=== PATIENT | male | born 1985 | race Caucasian/White ===

== ENCOUNTER 2019-06-20 16:10 | Inpatient (IN) | payer SELFPAY ==
[2019-06-20 16:17] VITALS: BP 142/103; PULSE 109; RESP 20; TEMP 37.3; O2SAT 97
--- NOTE | 2019-06-20 18:16 | ED_ITS ---
Entered by Trang Perez, acting as scribe for Glenys Montiel Tonie Jun 20, 2019 16:10 HPI - General Adult General: Chief complaint: General Medical Stated complaint: MULTIPLE COMPLAINTS Time Seen by Provider: 06/20/19 18:15 Source: patient Mode of arrival: ambulatory Limitations: no limitations History of Present Illness: HPI narrative: 34 yo Male presents to ED with mu ltiple complaints. Pt states that he thinks he is jaundiced. Pt states that his friend noticed that his eyes were yellow which has been going on for about a week. Pt states that he has a history of pancreatitis. Pt states that his pancreatitis was caused by drinking. Pt states that he does still drink occasionally and when he does drink, he drinks a large amount. Pt states that he fell down some steps about 2 weeks ago and has been having some pain since then. Pt states that he has been having night sweats for the past week. Pt states that he has a history of high blood pressure, anxiety and depression. MD complaint: Multiple complaints Onset (ago): week(s) Location: eyes and back Radiation: non-radiation Severity scale (1-10): 2 Quality: aching, sharp and constant Pain Consistency: constant Relieving factors: none Exacerbating factors: none Associated symptoms: Reports fevers/chills and other (back pain); Deny chest pain, confusion, dyspnea, headache(s), malaise, nausea, rash, palpitations, syncope or vomiting Treatments prior to arrival: none Review of Systems General: Reports: other (negative unless marked) Const: Reports: night sweats; Denies: fever, chills, body aches, fatigue or malaise Eyes: Reports: yellow eyes; Denies: change in vision or blurry vision ENMT: Denies: throat pain, painful swallowing, hoarseness, ear pain, ear discharge, Change in hearing or nasal discharge Card: Denies: chest pain, palpitations, irregular heart rhythm, syncope, pre- syncope, shortness of breath on exertion or shortness of breath when lying down Resp: Denies: shortness of breath, productive cough, non-productive cough, wheezing, coughing up blood or chest congestion GI: Reports: abdominal pain; Denies: nausea, vomiting, vomiting blood, coffee grounds in vomit, diarrhea, constipation, cramping, blood in stool or black tarry stool : Denies: flank pain, difficulty urinating, painful urination, urinary frequency, urinary urgency, decreased urine ouput, urinary incontinence or blood in urine Musc: Reports: back pain; Denies: neck pain, extremity pain, extremity swelling, joint pain, joint swelling, joint warmth or joint stiffness Skin/Breast: Denies: rash, skin tenderness or yellow skin Neuro: Denies: headache, numbness in extremities, weakness in extremities, changes in sensation, lack of coordination, difficulty walking, dizziness, vertigo or confusion Endo: Denies: excessive thirst, tired all the time, cold intolerance, excessive sweating, flushing or hot flashes Camron/Lymph: Denies: easy bruising, easy bleeding, petechiae or enlarged lymph nodes All/Imm: Denies: hives, throat swelling, tongue swelling, facial swelling or acute wheezing PFSH ED PFSH: Medical History (Updated 06/20/19 @ 22:07 by Glenys Montiel) Alcohol abuse Anxiety Depression Hypertension IBS (irritable bowel syndrome) Insomnia Pancreatitis Surgical History (Updated 06/20/19 @ 21:59 by Kenn Ventura MD) Hx of cholecystectomy Family History (Updated 06/20/19 @ 22:01 by Kenn Ventura MD) Father Cancer of colon cancer, mother of breast cancer Social History (Updated 06/20/19 @ 22:01 by Kenn Ventura MD) Smoking and tobacco status: current some day smoker Alcohol intake: current Household members: friend(s) Physical Exam Const: COMMON NORMALS: no apparent distress, oriented x3, no limitations, healthy appearing and well nourished EXAM LIMITATIONS: no altered mental status GENERAL APPEARANCE: cooperative, well kempt and well developed ORIENTATION/CONSCIOUSNESS: Yes awake HENMT: COMMON NORMALS: normocephalic, head/scalp atraumatic, hearing grossly normal bilaterally, external ears normal, EAC's normal, external nose normal and moist oral mucous membranes HEAD & SCALP: normal to inspection, normocephalic and atraumatic FACE & SINUS: normal facial exam and face symmetric NOSE: external nose normal and nares normal EXTERNAL EAR: Yes external ears normal EXTERNAL AUDITORY CANAL: EAC's normal MOUTH: oral and palatal mucosa normal and tongue normal Eye: COMMON NORMALS: PERRL, EOMs intact bilaterally, conjunctivae normal and no scleral icterus GENERAL EYE: normal appearance of both eyes and normal light reflex CONJUNCTIVA: Yes conjunctivae normal SCLERA: sclerae normal CORNEA: Yes corneas normal PUPIL: Yes PERRL DIRECT OPHTHALMOSCOPY: Yes normal light reflex Neck/C-Spine: COMMON NORMALS: full ROM, no lymphadenopathy, supple, no meningeal signs and no JVD GENERAL: Yes normal visual inspection and Yes trachea midline CERVICAL SPINE: Yes cervical ROM normal Chest: COMMONS NORMALS: inspection of chest normal and palpation of chest normal Resp: COMMON NORMALS: normal respiratory effort, no retractions, no use of accessory muscles and clear to auscultation bilaterally EFFORT & INSPECTION: Yes able to speak in complete sentences AUSCULTATION: clear to auscultation bilaterally Cardio: COMMON NORMALS: no JVD, regular rate, regular rhythm, S1 normal heart sound, S2 normal heart sound, no gallops, no clicks, no murmurs and no rub JUGULAR VENOUS DISTENTION: no JVD RATE: regular rate RHYTHM: regular rhythm HEART SOUNDS: S1 normal and S2 normal GI: COMMON NORMALS: soft to palpation, non-tender, no hepatosplenomegaly and no masses INSPECTION: Yes normal to inspection PALPATION: Yes soft and Yes no hepatosplenomegaly : COMMON NORMALS: Yes no CVA tenderness BLADDER/KIDNEY EXAM: Yes no CVA tenderness Back/Pelvis: COMMON NORMALS: no CVA tenderness, thoracic and lumbar spine normal to inspection, no thoracic nor lumbar tenderness and thoraco-lumbar ROM normal Extremity: COMMON NORMALS: normal to inspection, full ROM, normal capillary refill, no joint enlargement, no clubbing, cyanosis or edema and no calf tenderness Neuro: COMMON NORMALS: oriented x3, CN's II-XII intact bilaterally, moves all extremities, no focal motor deficits and no sensory deficits noted MENINGEAL SIGNS: Yes no meningeal signs Psych: COMMON NORMALS: mental status grossly normal, thought process normal, cooperative, affect normal, speech normal and activity/motor behavior normal APPEARANCE: Yes well kempt SPEECH: Yes normal speech THOUGHT PROCESS: normal thought process Skin: COMMON NORMALS: no rashes or lesions noted, skin turgor normal, no jaundice, no petechiae and no mottling GENERAL SKIN EXAM: no rashes or lesions noted and turgor normal Course Vital Signs: Vital signs: Vital Signs Temperature 99.2 F 06/20/19 16:17 Pulse Rate 109 H 06/20/19 16:17 Respiratory Rate 20 H 06/20/19 16:17 Blood Pressure 142/103 06/20/19 16:17 Pulse Oximetry 97 06/20/19 16:17 MDM - General Adult MDM Narrative: Medical decision making narrative: The case was reviewed with Dr. Sethi. The patient appears to have hepatitis C but also acute hepatitis A. He is jaundiced with pain in the right upper quadrant and vomiting. He has no fever. Case will be evaluated by Dr. Sethi and he will admit for symptom control. Lab Data: Attestation: I reviewed the patient's lab results. Labs: Lab Results 06/20/19 06/20/19 06/20/19 Range/Units 18:43 18:43 18:43 WBC 6.7 (4.0-10.0) 10^3/ uL RBC 4.76 (4.1-5.3) 10^6/u L Hgb 13.7 (11.7-16.6) g/dL Hct 39.0 L (42.0-52.0) % MCV 81.9 (80-94) fL MCH 28.8 (28.0-34.0) pg MCHC 35.1 (30.0-36.0) g/dL RDW 14.9 (12.1-15.1) % Plt Count 180 (130-400) 10^3/c mm MPV 11.7 H (7.4-10.4) fL Neut % (Auto) 54.2 % Lymph % (Auto) 30.7 % Holmes % (Auto) 13.8 % Eos % (Auto) 0.3 % Baso % (Auto) 0.7 % Neut # (Auto) 3.6 (1.8-7.7) 10^3/u L Lymph # (Auto) 2.1 (0.8-4.8) 10^3/u L Holmes # (Auto) 0.9 (0.2-0.9) 10^3/u L Eos # (Auto) 0.0 (0.0-0.8) 10^3/u L Baso # (Auto) 0.1 (0.0-0.1) 10^3/u L Nucleated RBC % (a uto) 0 % Nucleated RBCs # 0.0 /100WBC PT (10.5-13.3) SECO NDS INR (0.8-1.2) APTT (23.9-36.7) SECO NDS Sodium 131 L (136-145) mmol/L Potassium 3.4 L (3.5-5.1) mmol/L Chloride 92 L (98-107) mmol/L Carbon Dioxide 29 (22-29) mmol/L Anion Gap 13.4 (5-19) BUN 5 L (6-20) mg/dL Creatinine 0.7 (0.7-1.2) mg/dL GFR Calculation 129.1 (90-130) mL/min Glucose 103 (65-115) mg/dL Calculated Osmolal ity 268 L (285-295) mOsm/k g Lactic Acid (0.5-2.2) mmol/L Calcium 9.0 (8.5-10.5) mg/dL Magnesium 2.2 (1.7-2.3) mg/dL Total Bilirubin 8.4 H* Cancelled (0.15-1.2) mg/dL Direct Bilirubin 6.40 H (0.00-0.30) mg/d L Indirect Bilirubin Cancelled AST 211 H (0-40) U/L ALT 620 H (0-41) U/L Alkaline Phosphata se 235 H (40-130) IU/L Ammonia (16-60) umol/L Total Protein 6.9 (6.6-8.7) g/dL Albumin 3.3 L (3.5-5.2) g/dL Globulin 3.6 (1.3-4.6) g/dL Lipase 78 H (13-60) U/L Urine Color (Yellow) Urine Appearance (CLEAR) Urine pH (5-7) Ur Specific Gravit y (1.005-1.030) Urine Protein (Negative) Urine Glucose (UA) (Normal) Urine Ketones (Negative) Urine Blood (Negative) Urine Nitrate (Negative) Urine Bilirubin (NEGATIVE) Urine Urobilinogen (Negative) mg/dL Ur Leukocyte Rosemarie ase (Negative) Urine RBC (0-2) /hpf Urine WBC (0-5) /hpf Ur Squamous Epith Cells (0-5) Urine Bacteria (NONE) Urine Opiates Scre en (Negative) ng/mL Acetaminophen (10-30) ug/mL Ur Barbiturates Sc reen (Negative) ng/mL Ur Phencyclidine S crn (Negative) ng/mL Ur Amphetamines Sc reen (Negative) ng/mL U Benzodiazepines Scrn (Negative) ng/mL Urine Cocaine Scre en (Negative) ng/mL U Marijuana (THC) Screen (Negative) ng/mL Ethyl Alcohol 10 (0-10) mg/dL Serum Ketones (Negative) Hepatitis A IgM Ab (Nonreactive) Hep Bs Antigen (Nonreactive) Hep B Core IgM Ab (Nonreactive) Hepatitis C Antibo dy (Nonreactive) 06/20/19 06/20/19 06/20/19 Range/Units 18:43 18:43 18:43 WBC (4.0-10.0) 10^3/ uL RBC (4.1-5.3) 10^6/u L Hgb (11.7-16.6) g/dL Hct (42.0-52.0) % MCV (80-94) fL MCH (28.0-34.0) pg MCHC (30.0-36.0) g/dL RDW (12.1-15.1) % Plt Count (130-400) 10^3/c mm MPV (7.4-10.4) fL Neut % (Auto) % Lymph % (Auto) % Holmes % (Auto) % Eos % (Auto) % Baso % (Auto) % Neut # (Auto) (1.8-7.7) 10^3/u L Lymph # (Auto) (0.8-4.8) 10^3/u L Holmes # (Auto) (0.2-0.9) 10^3/u L Eos # (Auto) (0.0-0.8) 10^3/u L Baso # (Auto) (0.0-0.1) 10^3/u L Nucleated RBC % (a uto) % Nucleated RBCs # /100WBC PT 14.10 H (10.5-13.3) SECO NDS INR 1.06 (0.8-1.2) APTT 33.2 (23.9-36.7) SECO NDS Sodium (136-145) mmol/L Potassium (3.5-5.1) mmol/L Chloride (98-107) mmol/L Carbon Dioxide (22-29) mmol/L Anion Gap (5-19) BUN (6-20) mg/dL Creatinine (0.7-1.2) mg/dL GFR Calculation (90-130) mL/min Glucose (65-115) mg/dL Calculated Osmolal ity (285-295) mOsm/k g Lactic Acid 1.3 (0.5-2.2) mmol/L Calcium (8.5-10.5) mg/dL Magnesium (1.7-2.3) mg/dL Total Bilirubin (0.15-1.2) mg/dL Direct Bilirubin (0.00-0.30) mg/d L Indirect Bilirubin AST (0-40) U/L ALT (0-41) U/L Alkaline Phosphata se (40-130) IU/L Ammonia (16-60) umol/L Total Protein (6.6-8.7) g/dL Albumin (3.5-5.2) g/dL Globulin (1.3-4.6) g/dL Lipase (13-60) U/L Urine Color (Yellow) Urine Appearance (CLEAR) Urine pH (5-7) Ur Specific Gravit y (1.005-1.030) Urine Protein (Negative) Urine Glucose (UA) (Normal) Urine Ketones (Negative) Urine Blood (Negative) Urine Nitrate (Negative) Urine Bilirubin (NEGATIVE) Urine Urobilinogen (Negative) mg/dL Ur Leukocyte Rosemarie ase (Negative) Urine RBC (0-2) /hpf Urine WBC (0-5) /hpf Ur Squamous Epith Cells (0-5) Urine Bacteria (NONE) Urine Opiates Scre en (Negative) ng/mL Acetaminophen (10-30) ug/mL Ur Barbiturates Sc reen (Negative) ng/mL Ur Phencyclidine S crn (Negative) ng/mL Ur Amphetamines Sc reen (Negative) ng/mL U Benzodiazepines Scrn (Negative) ng/mL Urine Cocaine Scre en (Negative) ng/mL U Marijuana (THC) Screen (Negative) ng/mL Ethyl Alcohol (0-10) mg/dL Serum Ketones (Negative) Hepatitis A IgM Ab Reactive H (Nonreactive) Hep Bs Antigen Non-reactive (Nonreactive) Hep B Core IgM Ab Non-reactive (Nonreactive) Hepatitis C Antibo dy Reactive H (Nonreactive) 06/20/19 06/20/19 06/20/19 Range/Units 18:43 18:43 18:43 WBC (4.0-10.0) 10^3/ uL RBC (4.1-5.3) 10^6/u L Hgb (11.7-16.6) g/dL Hct (42.0-52.0) % MCV (80-94) fL MCH (28.0-34.0) pg MCHC (30.0-36.0) g/dL RDW (12.1-15.1) % Plt Count (130-400) 10^3/c mm MPV (7.4-10.4) fL Neut % (Auto) % Lymph % (Auto) % Holmes % (Auto) % Eos % (Auto) % Baso % (Auto) % Neut # (Auto) (1.8-7.7) 10^3/u L Lymph # (Auto) (0.8-4.8) 10^3/u L Holmes # (Auto) (0.2-0.9) 10^3/u L Eos # (Auto) (0.0-0.8) 10^3/u L Baso # (Auto) (0.0-0.1) 10^3/u L Nucleated RBC % (a uto) % Nucleated RBCs # /100WBC PT (10.5-13.3) SECO NDS INR (0.8-1.2) APTT (23.9-36.7) SECO NDS Sodium (136-145) mmol/L Potassium (3.5-5.1) mmol/L Chloride (98-107) mmol/L Carbon Dioxide (22-29) mmol/L Anion Gap (5-19) BUN (6-20) mg/dL Creatinine (0.7-1.2) mg/dL GFR Calculation (90-130) mL/min Glucose (65-115) mg/dL Calculated Osmolal ity (285-295) mOsm/k g Lactic Acid (0.5-2.2) mmol/L Calcium (8.5-10.5) mg/dL Magnesium (1.7-2.3) mg/dL Total Bilirubin (0.15-1.2) mg/dL Direct Bilirubin (0.00-0.30) mg/d L Indirect Bilirubin AST (0-40) U/L ALT (0-41) U/L Alkaline Phosphata se (40-130) IU/L Ammonia 35 (16-60) umol/L Total Protein (6.6-8.7) g/dL Albumin (3.5-5.2) g/dL Globulin (1.3-4.6) g/dL Lipase (13-60) U/L Urine Color (Yellow) Urine Appearance (CLEAR) Urine pH (5-7) Ur Specific Gravit y (1.005-1.030) Urine Protein (Negative) Urine Glucose (UA) (Normal) Urine Ketones (Negative) Urine Blood (Negative) Urine Nitrate (Negative) Urine Bilirubin (NEGATIVE) Urine Urobilinogen (Negative) mg/dL Ur Leukocyte Rosemarie ase (Negative) Urine RBC (0-2) /hpf Urine WBC (0-5) /hpf Ur Squamous Epith Cells (0-5) Urine Bacteria (NONE) Urine Opiates Scre en (Negative) ng/mL Acetaminophen < 5.0 L (10-30) ug/mL Ur Barbiturates Sc reen (Negative) ng/mL Ur Phencyclidine S crn (Negative) ng/mL Ur Amphetamines Sc reen (Negative) ng/mL U Benzodiazepines Scrn (Negative) ng/mL Urine Cocaine Scre en (Negative) ng/mL U Marijuana (THC) Screen (Negative) ng/mL Ethyl Alcohol (0-10) mg/dL Serum Ketones Negative (Negative) Hepatitis A IgM Ab (Nonreactive) Hep Bs Antigen (Nonreactive) Hep B Core IgM Ab (Nonreactive) Hepatitis C Antibo dy (Nonreactive) 06/20/19 06/20/19 Range/Units 19:22 19:22 WBC (4.0-10.0) 10^3/ uL RBC (4.1-5.3) 10^6/u L Hgb (11.7-16.6) g/dL Hct (42.0-52.0) % MCV (80-94) fL MCH (28.0-34.0) pg MCHC (30.0-36.0) g/dL RDW (12.1-15.1) % Plt Count (130-400) 10^3/c mm MPV (7.4-10.4) fL Neut % (Auto) % Lymph % (Auto) % Holmes % (Auto) % Eos % (Auto) % Baso % (Auto) % Neut # (Auto) (1.8-7.7) 10^3/u L Lymph # (Auto) (0.8-4.8) 10^3/u L Holmes # (Auto) (0.2-0.9) 10^3/u L Eos # (Auto) (0.0-0.8) 10^3/u L Baso # (Auto) (0.0-0.1) 10^3/u L Nucleated RBC % (a uto) % Nucleated RBCs # /100WBC PT (10.5-13.3) SECO NDS INR (0.8-1.2) APTT (23.9-36.7) SECO NDS Sodium (136-145) mmol/L Potassium (3.5-5.1) mmol/L Chloride (98-107) mmol/L Carbon Dioxide (22-29) mmol/L Anion Gap (5-19) BUN (6-20) mg/dL Creatinine (0.7-1.2) mg/dL GFR Calculation (90-130) mL/min Glucose (65-115) mg/dL Calculated Osmolal ity (285-295) mOsm/k g Lactic Acid (0.5-2.2) mmol/L Calcium (8.5-10.5) mg/dL Magnesium (1.7-2.3) mg/dL Total Bilirubin (0.15-1.2) mg/dL Direct Bilirubin (0.00-0.30) mg/d L Indirect Bilirubin AST (0-40) U/L ALT (0-41) U/L Alkaline Phosphata se (40-130) IU/L Ammonia (16-60) umol/L Total Protein (6.6-8.7) g/dL Albumin (3.5-5.2) g/dL Globulin (1.3-4.6) g/dL Lipase (13-60) U/L Urine Color Dark yellow (Yellow) Urine Appearance Clear (CLEAR) Urine pH 7 (5-7) Ur Specific Gravit y 1.005 (1.005-1.030) Urine Protein Neg (Negative) Urine Glucose (UA) Norm (Normal) Urine Ketones Negative (Negative) Urine Blood Neg (Negative) Urine Nitrate Negative (Negative) Urine Bilirubin 2+ H (NEGATIVE) Urine Urobilinogen 4 H (Negative) mg/dL Ur Leukocyte Rosemarie ase Negative (Negative) Urine RBC None (0-2) /hpf Urine WBC None (0-5) /hpf Ur Squamous Epith Cells None (0-5) Urine Bacteria None (NONE) Urine Opiates Scre en Negative (Negative) ng/mL Acetaminophen (10-30) ug/mL Ur Barbiturates Sc reen Negative (Negative) ng/mL Ur Phencyclidine S crn Negative (Negative) ng/mL Ur Amphetamines Sc reen Negative (Negative) ng/mL U Benzodiazepines Scrn Negative (Negative) ng/mL Urine Cocaine Scre en Negative (Negative) ng/mL U Marijuana (THC) Screen Positive H (Negative) ng/mL Ethyl Alcohol (0-10) mg/dL Serum Ketones (Negative) Hepatitis A IgM Ab (Nonreactive) Hep Bs Antigen (Nonreactive) Hep B Core IgM Ab (Nonreactive) Hepatitis C Antibo dy (Nonreactive) Imaging Data^: CT Abd/Pel: Radiologist's impression: [place] [address] CT Scan Report Signed Patient: Tono Kessler #: [id number] : 1985Acct#:[id number] Age/Sex: 34 / MADM Date: 06/20/19 Loc: ERRoom/Bed: Attending Dr: Ordering Provider/Ordering MD: Glenys Montiel DO Date of Service: 06/20/19 Procedure(s): CT abdomen pelvis w con* [id number] Accession Number(s): [id number] Report Number: [id number] PROCEDURE INFORMATION: Exam: CT Abdomen And Pelvis With Contrast Exam date and time: 06/20/2019 6:25 PM Age: 34 years old Clinical indication: Abdominal pain; Generalized; Prior surgery; Surgery date: 6+ months; Surgery type: Gb; Patient HX: Abd pain xseveral days TECHNIQUE: Imaging protocol: Computed tomography of the abdomen and pelvis with intravenous contrast. Total DLP: 501.61 mGy-cm Radiation optimization: All CT scans at this facility use at least one of these dose optimization techniques: automated exposure control; mA and/or kV adjustment per patient size (includes targeted exams where dose is matched to clinical indication); or iterative reconstruction. Contrast material: OMNIPAQUE 300; Contrast volume: 95 ml; Contrast route: IV; COMPARISON: CT abdomen pelvis w con* [id number] 08/23/2017 7:00 PM FINDINGS: There is minimal atelectasis within the lung bases. There are mild degenerative changes of the spine. There are old healed transverse process fractures on the left at L1, L2 and L3. There is periportal edema. This is a nonspecific finding. It can be seen with hepatitis as well as other etiologies. It may be related to the timing of the scan after the bolus of contrast. Please correlate with liver function tests. There is a stable small hypodensity within the right lobe of the liver likely representing a cyst. There is no suspicious liver mass. The patient is status post cholecystectomy. The pancreas is unremarkable. The spleen is prominent. 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 There is no adrenal mass. There is no hydronephrosis. There are no renal calculi. There is no perinephric stranding. There is no renal mass. The aorta is normal in caliber. The IVC is normal in caliber. There is no retroperitoneal adenopathy. There is no mesenteric adenopathy. Stomach is filled with food. There is no gastric wall thickening. The small bowel loops in the upper abdomen are nondistended with no bowel wall thickening. Feces is seen throughout the colon. There is no thickening of the wall of the ascending, transverse or descending colons. Within the pelvis: A normal appendix is seen within the right lower quadrant. The bladder is unremarkable. There is mild prostatic enlargement. There is no free fluid within the pelvis. There is no inguinal adenopathy. There is no pelvic adenopathy. The rectosigmoid colon is unremarkable. CT/CT abdomen pelvis w con* [id number] IMPRESSION: 1. There is periportal edema. This is a nonspecific finding. It can be seen with hepatitis as well as other etiologies. It may be related to the timing of the scan after the bolus of contrast. Please correlate with liver function tests. 2. Prominence of the spleen with perisplenic varices. Please correlate for portal hypertension and possible cirrhosis. 3. No evidence for bowel obstruction or bowel wall thickening. 4. Mild prostatic enlargement. Radiation Dose CTDIVOL = (mGy): DLP = 501.61 (mGy-cm) Dictated By:Isak Coleman MD Signed By:Isak Coleman MDSigned Date/Time:06/20/191935 DD/ 34 Discharge Plan Discharge Patient Disposition: Placed in Observation Admit Provider: Kenn Ventura Clinical Impression: Acute hepatitis A, Jaundice Condition: Stable Coding Level of Care Code ED Curing Room Supervisor for Chg Fwd Exam Comprehensive The documentation recorded by the Ana londono Carmen, accurately reflects the service I personally performed and the decisions made by Tiana kapadia Eli N Jun 20, 2019 16:10
--- NOTE | 2019-06-20 18:22 | CTR_ITS ---
PROCEDURE INFORMATION: Exam: CT Abdomen And Pelvis With Contrast Exam date and time: 06/20/2019 6:25 PM Age: 34 years old Clinical indication: Abdominal pain; Generalized; Prior surgery; Surgery date: 6+ months; Surgery type: Gb; Patient HX: Abd pain xseveral days TECHNIQUE: Imaging protocol: Computed tomography of the abdomen and pelvis with intravenous contrast. Total DLP: 501.61 mGy-cm Radiation optimization: All CT scans at this facility use at least one of these dose optimization techniques: automated exposure control; mA and/or kV adjustment per patient size (includes targeted exams where dose is matched to clinical indication); or iterative reconstruction. Contrast material: OMNIPAQUE 300; Contrast volume: 95 ml; Contrast route: IV; COMPARISON: CT abdomen pelvis w con* [id number] 08/23/2017 7:00 PM FINDINGS: There is minimal atelectasis within the lung bases. There are mild degenerative changes of the spine. There are old healed transverse process fractures on the left at L1, L2 and L3. There is periportal edema. This is a nonspecific finding. It can be seen with hepatitis as well as other etiologies. It may be related to the timing of the scan after the bolus of contrast. Please correlate with liver function tests. There is a stable small hypodensity within the right lobe of the liver likely representing a cyst. There is no suspicious liver mass. The patient is status post cholecystectomy. The pancreas is unremarkable. The spleen is prominent. 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 There is no adrenal mass. There is no hydronephrosis. There are no renal calculi. There is no perinephric stranding. There is no renal mass. The aorta is normal in caliber. The IVC is normal in caliber. There is no retroperitoneal adenopathy. There is no mesenteric adenopathy. Stomach is filled with food. There is no gastric wall thickening. The small bowel loops in the upper abdomen are nondistended with no bowel wall thickening. Feces is seen throughout the colon. There is no thickening of the wall of the ascending, transverse or descending colons. Within the pelvis: A normal appendix is seen within the right lower quadrant. The bladder is unremarkable. There is mild prostatic enlargement. There is no free fluid within the pelvis. There is no inguinal adenopathy. There is no pelvic adenopathy. The rectosigmoid colon is unremarkable. CT/CT abdomen pelvis w con* [id number] IMPRESSION: 1. There is periportal edema. This is a nonspecific finding. It can be seen with hepatitis as well as other etiologies. It may be related to the timing of the scan after the bolus of contrast. Please correlate with liver function tests. 2. Prominence of the spleen with perisplenic varices. Please correlate for portal hypertension and possible cirrhosis. 3. No evidence for bowel obstruction or bowel wall thickening. 4. Mild prostatic enlargement. Radiation Dose CTDIVOL = (mGy): DLP = 501.61 (mGy-cm)
--- NOTE | 2019-06-20 18:23 | US_ITS ---
WS: [id number] Complete ABDOMINAL ULTRASOUND HISTORY: Abdominal Pain COMPARISON: None available. Liver: 16.4 cm in length. Liver is normal size and echogenicity with no mass or intrahepatic dilatati on. Gallbladder: Prior cholecystectomy. Pancreas: Normal size and echogenicity. CBD: 0.5 cm. Right kidney: 10.8 cm x 5.7 cm x 4.7 cm. No mass, cortical thickening or hydronephrosis. Left kidney: 9.9 cm x 4.3 cm x 4.4 cm. No mass, cortical thickening or hydronephrosis. Spleen: Normal size and echogenicity. Abdominal aorta and IVC are within normal limits. No ascites. US/US abdomen complete* [id number] IMPRESSION: 1. Prior cholecystectomy. 2. No bile duct dilatation or mass.
[2019-06-20] MEDS: sodium chloride 0.9% 1,000 ML 100 ML IV ×2 (18:40→23:21)
[2019-06-20 19:03] LABS: Basophils # 0.1 10^3/uL (0.0-0.1); Basophils % 0.7 %; Eosinophils % 0.3 %; Hemoglobin 13.7 g/dL (11.7-16.6); Lymphocytes # 2.1 10^3/uL (0.8-4.8); Lymphocytes % 30.7 %; Mean Corpuscular HGB Conc 35.1 g/dL (30.0-36.0); Mean Corpuscular Hemoglobin 28.8 pg (28.0-34.0); Mean Corpuscular Volume 81.9 fL (80-94); Mean Platelet Volume 11.7 fL (7.4-10.4); Monocytes # 0.9 10^3/uL (0.2-0.9); Monocytes % 13.8 %; Neutrophils # 3.6 10^3/uL (1.8-7.7); Neutrophils % 54.2 %; Nucleated Red Blood Cells % 0 %; Platelet Count 180 10^3/cmm (130-400); Red Blood Count 4.76 10^6/uL (4.1-5.3); Red Cell Distribution Width 14.9 % (12.1-15.1); White Blood Count 6.7 10^3/uL (4.0-10.0)
[2019-06-20 19:09] LABS: Ammonia 35 umol/L (16-60)
[2019-06-20 19:10] LABS: Lactic Sepsis W/Reflex 1.3 mmol/L (0.5-2.2)
[2019-06-20 19:19] LABS: INR 1.06 (0.8-1.2)
[2019-06-20 19:20] LABS: Ketone (Acetest) Serum Negative (Negative); Partial Thromboplastin Time 33.2 SECONDS (23.9-36.7)
[2019-06-20] MEDS: iohexol 300 mg/mL 100 mL Btl IV (19:21)
[2019-06-20 19:26] LABS: Alanine Aminotransferase 620 U/L (0-41); Albumin Level 3.3 g/dL (3.5-5.2); Alkaline Phosphatase 235 IU/L (40-130); Anion Gap 13.4 (5-19); Aspartate Amino Transferase 211 U/L (0-40); Blood Urea Nitrogen 5 mg/dL (6-20); Carbon Dioxide 29 mmol/L (22-29); Chloride 92 mmol/L (98-107); Globulin 3.6 g/dL (1.3-4.6); Glomerular Filtration Rate 129.1 mL/min (90-130); Glucose 103 mg/dL (65-115); Osmolality Calculated 268 mOsm/kg (285-295); Potassium 3.4 mmol/L (3.5-5.1); Sodium 131 mmol/L (136-145); Total Protein 6.9 g/dL (6.6-8.7)
[2019-06-20 19:52] LABS: Total Bilirubin 8.4 mg/dL (0.15-1.2)
[2019-06-20 19:57] LABS: Lipase 78 U/L (13-60); Magnesium 2.2 mg/dL (1.7-2.3)
[2019-06-20 20:11] LABS: Bilirubin Urine 2+ (NEGATIVE); Blood Urine Neg (Negative); Glucose Urine UA Norm (Normal); Ketones Urine Negative (Negative); Leukocyte Esterase Urine Negative (Negative); Nitrate Urine Negative (Negative); Protein Urine Neg (Negative); Specific Gravity, Urine 1.005 (1.005-1.030); Urine Appearance Clear (CLEAR); Urine Color Dark Yellow (Yellow); Urobilinogen Urine 4 mg/dL (Negative); pH Urine 7 (5-7)
[2019-06-20 20:11] LABS: Hepatitis A Antibody IgM. Reactive (Nonreactive); Hepatitis B Core IgM Non-Reactive (Nonreactive); Hepatitis B Surface Antigen. Non-Reactive (Nonreactive)
[2019-06-20 20:13] LABS: Amphetamines Screen Urine Negative (Negative); Barbiturates Screen Urine Negative (Negative); Benzodiazepines Screen Urine Negative (Negative); Cocaine Screen Urine Negative (Negative); Opiate Screen Urine Negative (Negative); PCP Screen Urine Negative (Negative); THC Screen Urine Positive (Negative)
[2019-06-20 20:33] LABS: Acetaminophen < 5.0 ug/mL (10-30)
[2019-06-20 20:46] LABS: Alcohol Level 10 mg/dL (0-10)
[2019-06-20 20:57] LABS: Hepatitis C Virus Antibody Reactive (Nonreactive)
--- NOTE | 2019-06-20 21:58 | P.HP_ITS ---
Providers/Chief Complaint Primary Care Provider: Carson Mendez MD Chief Complaint: MULTIPLE COMPLAINTS History of Present Illness Smooth Kessler is a 34 year old male who has a history of depression, hypertension, insomnia, came in with a one-week history of yellow-colored eyes. Patient is stating that his friend noticed that his eye color is changing, this happened 1 week ago, he did not seek medical attention right away, he tried to hydrate himself use [id number] medications, denying excessive use of Tylenol or aspirin [id number], he has been drinking alcohol on daily basis, he drinks vodka most of the time, when he drinks heavily he drinks 12 shots, 1 pack of cigarettes per week, does electronic cigarettes, denying fever, abdominal pain, dysuria, but is endorsing extreme lethargy, nausea, loose stools. Patient is drinking water from tap, no recent sexual activity, denying IV drug abuse, has body tattoos, endorses to unprotected sexual intercourse few months back. He lives with his friend, his friend is in good health as per him, he also noticed that hyperemic skin rash that developed today after shower which he attributes to using lotion. He has not traveled outside [place]. He is denying poor sanitary conditions at his house. Diagnostics in ER revealed acute hepatitis with hepatitis a virus, liver failure, U tox positive for THC, hepatitis C antibody is reactive Review of Systems Const: Reports: body aches, change in appetite, fatigue, malaise and change in sleep pattern; Denies: fever or chills Eyes: Reports: yellow eyes ENMT: Denies: throat pain Card: Denies: chest pain Resp: Denies: shortness of breath GI: Reports: nausea and diarrhea; Denies: abdominal pain or vomiting : Denies: flank pain Musc: Denies: neck pain Skin/Breast: Denies: rash Neuro: Denies: headache Psych: Reports: anxiety, depression and mood swings; Denies: sleeping less Endo: Denies: excessive urination Camron/Lymph: Denies: easy bruising All/Imm: Denies: hives Medications/Allergies Home Medications Medication Instructions Recorded Confirmed Last Taken Type clonazepam 1 mg PO DAILY PRN 06/20/19 06/20/19 Unknown History fluoxetine 20 mg PO DAILY 06/20/19 06/20/19 Unknown History hydroxyzine HCl 50 mg PO QID 06/20/19 06/20/19 Unknown History ondansetron 4 mg PO Q8H PRN 06/20/19 06/20/19 06/20/19 History trazodone 100 mg PO BEDTIME PRN 06/20/19 06/20/19 Unknown History Allergies Allergy/AdvReac Type Severity Reaction Status Date / Time No Known Allergies Allergy Verified 06/20/19 16:24 PFSH Acute PFSH: Medical History Alcohol abuse Anxiety Depression Hypertension IBS (irritable bowel syndrome) Insomnia Pancreatitis Surgical History Hx of cholecystectomy Family History Father Cancer of colon cancer, mother of breast cancer Social History (Updated 06/20/19 @ 23:24 by Kenn Ventura MD) Smoking and tobacco status: current some day smoker Alcohol intake: current Alcohol use comment: Patient drinks 12 shots of vodka when he drinks heavy Substance/Drug Use: current Other substance/drug use details: He vapes Lives independently: Yes Household members: friend(s) Housing: House Marital status: Vitals/I&O/Wt Last Vital Signs Temp 99.2 F 06/20/19 16:17 Pulse 109 H 06/20/19 16:17 Resp 20 H 06/20/19 16:17 BP 142/103 06/20/19 16:17 Pulse Ox 97 06/20/19 16:17 Weight last 48 hrs Weight 58.06 kg Physical Exam Narrative: EXAM NARRATIVE: Young male sitting comfortable in his bed Icteric conjunctive a EOMI, PERRLA Icteric skin Asterixis negative S1, S2, no signs of heart failure Abdomen soft, nontender nondistended Hepatomegaly positive Lungs clear to auscultation Neurologically no work exam Skin shows hyperemic skin rash extending from his forehead towards his chin, no signs of discharge, Lower extremities no signs of ischemia gangrene or ulcer Data : 06/20/19 18:43 06/20/19 18:43 A&P Assessment and plan (1) Acute hepatitis A: Status: Acute Code(s): B15.9 - Hepatitis A without hepatic coma (2) Jaundice: Status: Acute Code(s): R17 - Unspecified jaundice (3) Skin rash: Status: Acute Code(s): R21 - Rash and other nonspecific skin eruption (4) Alcohol abuse: Status: Acute Code(s): F10.10 - Alcohol abuse, uncomplicated (5) Smoker: Status: Acute Code(s): F17.200 - Nicotine dependence, unspecified, uncomplicated (6) Hepatitis C: Status: Acute Code(s): B19.20 - Unspecified viral hepatitis C without hepatic coma Additional A&P Information Acute hepatitis A Patient presented with jaundice Patient is denying poor sanitary conditions, drinking well water, no recent sexual activity, no recent traveling, Conservative management Hepatitis C antibodies positive, will check hepatitis C RNA viral load, he was counseled on importance of treatment for hepatitis C and prevention of liver cirrhosis and liver cancer Patient is endorsing to unprotected sex few months ago and body tattoos, body tattoos were done by his friend Will check HIV panel Counseled on getting hepatitis B vaccine after resolution of hepatitis A Signs of portal hypertension on abdominal imaging I am suspecting he had hepatitis C for a long time contributing to portal hypertension He will need EGD to rule out esophageal varices He sees Dr. Vansesa Mendez has done colonoscopy because of family history of colon cancer Alcohol abuse: Thiamine and folic acid, denies alcohol withdrawal symptoms Alcohol level undetectable Smoking abuse: Patient has been counseled extensively on cessation of smoking and alcohol and benefits to his health Depression/anxiety: I would continue his paroxetine and as needed use of trazodo ne at night Hyperemic skin rash: Watch for development of erysipelas, is not septic at the moment, I would use steroids for now Hypertension: Continue metoprolol Full code Attestations Medical Necessity Statement*: Anticipating his stay to cross more than 2 midnights, needs work-up for hepatitis C and hyperemic skin rash needs to be monitored for development of erysipelas, continue hepatitis a conservative management Time Spent in Patient Care: 45 Coding Level of Care Code Acute Chemistry Laboratory Technician for [facility] Fwd Diagnoses Acute hepatitis A B15.9 Jaundice R17 Skin rash R21 Alcohol abuse F10.10 Smoker F17.200 Hepatitis C B19.20
[2019-06-20 22:22] VITALS: BP 137/65; PULSE 98; RESP 18; O2SAT 100
[2019-06-20 23:01] VITALS: BP 127/88; PULSE 95; RESP 18; TEMP 37.3; O2SAT 96
[2019-06-20 23:15] VITALS: RESP 18
[2019-06-20] MEDS: morphine 4 mg/mL SDV 1 mL IVP (23:15)
[2019-06-21] VITALS (8 sets, daily range): BP systolic 93–124; BP diastolic 60–85; PULSE 78–98; RESP 17–20; TEMP 36.4–37.2; O2SAT 93–97
[2019-06-21] MEDS: trazodone 100 mg Tablet PO (00:25)
[2019-06-21] MEDS: enoxaparin 40 mg/0.4 mL Syringe SUBCUT (00:25)
[2019-06-21 00:39] LABS: HIV 1 & 2 Antibody Non-Reactive (Non-Reactiv); HIV 1 & 2 Antigen Non-Reactive (Non-Reactiv)
[2019-06-21 05:53] LABS: Basophils % 0.9 %; Eosinophils % 0.9 %; Hematocrit 36.5 % (42.0-52.0); Hemoglobin 12.5 g/dL (11.7-16.6); Lymphocytes % 45.2 %; Mean Corpuscular HGB Conc 34.2 g/dL (30.0-36.0); Mean Corpuscular Hemoglobin 29.9 pg (28.0-34.0); Mean Corpuscular Volume 87.3 fL (80-94); Mean Platelet Volume 12.3 fL (7.4-10.4); Monocytes # 0.5 10^3/uL (0.2-0.9); Monocytes % 12.4 %; Neutrophils # 1.8 10^3/uL (1.8-7.7); Neutrophils % 40.1 %; Nucleated Red Blood Cells % 0 %; Platelet Count 152 10^3/cmm (130-400); Red Blood Count 4.18 10^6/uL (4.1-5.3); Red Cell Distribution Width 15.4 % (12.1-15.1); White Blood Count 4.4 10^3/uL (4.0-10.0)
[2019-06-21 06:14] LABS: Alanine Aminotransferase 483 U/L (0-41); Albumin Level 2.8 g/dL (3.5-5.2); Alkaline Phosphatase 220 IU/L (40-130); Anion Gap 10.6 (5-19); Aspartate Amino Transferase 148 U/L (0-40); Blood Urea Nitrogen 5 mg/dL (6-20); Calcium 8.5 mg/dL (8.5-10.5); Carbon Dioxide 27 mmol/L (22-29); Chloride 103 mmol/L (98-107); Globulin 3.5 g/dL (1.3-4.6); Glomerular Filtration Rate 154.2 mL/min (90-130); Glucose 91 mg/dL (65-115); Osmolality Calculated 279 mOsm/kg (285-295); Potassium 3.6 mmol/L (3.5-5.1); Sodium 137 mmol/L (136-145); Total Bilirubin 6.4 mg/dL (0.15-1.2); Total Protein 6.3 g/dL (6.6-8.7)
[2019-06-21 06:32] LABS: Slide Review Slide Review Perform
[2019-06-21] MEDS: sodium chloride 0.9% 1,000 ML 100 ML IV ×2 (08:00→17:25)
[2019-06-21] MEDS: PARoxetine 20 mg Tablet PO (08:01)
[2019-06-21] MEDS: thiamine 100 mg Tablet PO (08:01)
[2019-06-21] MEDS: folic acid 1 mg Tablet PO (08:01)
[2019-06-21] MEDS: morphine 4 mg/mL SDV 1 mL IVP ×2 (11:34→20:14)
--- NOTE | 2019-06-21 13:36 | P.PN_ITS ---
Subjective Subjective: Interval history: Smooth reports he is feeling a little bit better. He is able to eat. No nausea. History and physical was reviewed. Medications: Reviewed: Yes Vitals/I&O/Wt Last Vital Signs Temp 98.7 F 06/21/19 11:23 Pulse 87 06/21/19 11:23 Resp 18 06/21/19 11:34 BP 118/79 06/21/19 11:23 Pulse Ox 94 06/21/19 11:23 06/20/19 06/21/19 06/21/19 22:59 06:59 14:59 Intake Total 468.333 / 067.161 5209 / 1465 Output Total 1225 / 1225 Balance -756.667 / -069.492 9589 / 1465 Weight last 48 hrs Weight 58.06 kg Physical Exam Narrative: EXAM NARRATIVE: General exam is a jaundiced white male, no apparent distress Cardiovascular regular rate and rhythm without murmur Lungs clear Abdomen is soft, positive bowel sounds Extremities no cyanosis clubbing or edema Data : 06/21/19 04:45 06/21/19 04:45 A&P Assessment and plan (1) Acute hepatitis A: Continue supportive care, with IV fluids. Status: Acute Code(s): B15.9 - Hepatitis A without hepatic coma (2) Jaundice: Bilirubin level still significantly elevated. Status: Acute Code(s): R17 - Unspecified jaundice (3) Skin rash: Improved. Does not appear infectious. Status: Acute Code(s): R21 - Rash and other nonspecific skin eruption (4) Alcohol abuse: Counseled on avoidance of alcohol Continue thiamine Monitor for alcohol withdrawal Status: Acute Code(s): F10.10 - Alcohol abuse, uncomplicated (5) Smoker: Encourage abstinence Status: Acute Code(s): F17.200 - Nicotine dependence, unspecified, uncomplicated (6) Hepatitis C: Will need to seek treatment outpatient. Will refer Status: Acute Code(s): B19.20 - Unspecified viral hepatitis C without hepatic coma Additional A&P Information Depression. Continue Paxil Hypertension, continue metoprolol Attestations Medical Necessity Statement*: Needs continued hospitalization for supportive care secondary to acute hepatitis A with underlying liver dysfunction. Coding Level of Care Code Acute Insulation Inspector for [facility] Pauline Diagnoses Acute hepatitis A B15.9 Jaundice R17 Skin rash R21 Alcohol abuse F10.10 Smoker F17.200 Hepatitis C B19.20
[2019-06-22] VITALS (7 sets, daily range): BP systolic 100–110; BP diastolic 66–78; PULSE 66–82; RESP 18–20; TEMP 36.8–37.1; O2SAT 96–98
[2019-06-22] MEDS: morphine 4 mg/mL SDV 1 mL IVP ×2 (02:25→08:35)
[2019-06-22] MEDS: sodium chloride 0.9% 1,000 ML 100 ML IV (03:28)
[2019-06-22] MEDS: enoxaparin 40 mg/0.4 mL Syringe SUBCUT (03:29)
[2019-06-22 05:45] LABS: Basophils # 0.1 10^3/uL (0.0-0.1); Eosinophils # 0.1 10^3/uL (0.0-0.8); Eosinophils % 1.4 %; Hematocrit 37.7 % (42.0-52.0); Hemoglobin 12.8 g/dL (11.7-16.6); Lymphocytes # 2.3 10^3/uL (0.8-4.8); Lymphocytes % 43.8 %; Mean Corpuscular Hemoglobin 30.3 pg (28.0-34.0); Mean Corpuscular Volume 89.1 fL (80-94); Mean Platelet Volume 12.1 fL (7.4-10.4); Monocytes # 0.7 10^3/uL (0.2-0.9); Monocytes % 13.4 %; Neutrophils # 2.1 10^3/uL (1.8-7.7); Nucleated Red Blood Cells % 0 %; Platelet Count 187 10^3/cmm (130-400); Red Blood Count 4.23 10^6/uL (4.1-5.3); Red Cell Distribution Width 16.2 % (12.1-15.1); White Blood Count 5.1 10^3/uL (4.0-10.0)
[2019-06-22 06:06] LABS: Alanine Aminotransferase 378 U/L (0-41); Albumin Level 2.9 g/dL (3.5-5.2); Alkaline Phosphatase 225 IU/L (40-130); Anion Gap 11.3 (5-19); Aspartate Amino Transferase 121 U/L (0-40); Blood Urea Nitrogen 6 mg/dL (6-20); Calcium 8.5 mg/dL (8.5-10.5); Carbon Dioxide 27 mmol/L (22-29); Chloride 102 mmol/L (98-107); Globulin 3.8 g/dL (1.3-4.6); Glomerular Filtration Rate 129.1 mL/min (90-130); Glucose 95 mg/dL (65-115); Osmolality Calculated 278 mOsm/kg (285-295); Potassium 4.3 mmol/L (3.5-5.1); Sodium 136 mmol/L (136-145); Total Bilirubin 4.3 mg/dL (0.15-1.2); Total Protein 6.7 g/dL (6.6-8.7)
[2019-06-22 06:16] LABS: INR 1.08 (0.8-1.2)
[2019-06-22 06:24] LABS: Slide Review Slide Review Perform
[2019-06-22] MEDS: metoprolol tartrate 25 mg Tablet PO (08:50)
[2019-06-22] MEDS: thiamine 100 mg Tablet PO (08:50)
[2019-06-22] MEDS: PARoxetine 20 mg Tablet PO (08:50)
[2019-06-22] MEDS: folic acid 1 mg Tablet PO (08:51)
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
--- NOTE | 2019-06-22 13:19 | PM.DCS ---
Discharge Providers Date of Admission: 06/20/19 21:43 Date of Discharge: June 22, 2019 Attending Provider at Admission: Kenn Ventura MD Attending Provider at Discharge: Kodi Escalera MD Primary Care Provider: Carson Mendez MD Diagnoses at Discharge Discharge Diagnosis (1) Alcohol abuse: Status: Acute Problem details: Discussed abstinence. Offered rehabilitation which she refused. Reason for Visit Reason for Visit: Reason For Visit: MULTIPLE COMPLAINTS Hospital Course Hospital Course: Bob is a 34-year-old white male who presented to the hospital with abdominal discomfort, history of vomiting and diarrhea. He was found to have hepatitis A. He reported significant history of alcohol intake. Hepatitis C was noted as well. Transaminitis with hyperbilirubinemia was noted on admission. INR was slightly elevated. He was hydrated, provided supportive care, and transaminase levels, bilirubin level decreased appropriately. He was able to tolerate liquid and food by mouth and it was thought he could be discharged home. Psychiatry also saw him prior to discharge, reviewing with him some feelings of hopelessness. He denied any homicidal or suicidal ideation. His psychiatric medication was refilled. Also of note his metoprolol was decreased during his hospital stay. This could be discontinued in the future if there is no other indication. Hypertension was not an issue during his hospital stay, but there was concern to stop them abruptly. Note that the skin rash that was noted on admission was seborrhea, improved while in the hospital but he can follow-up with his primary care provider regarding this. Physical Exam Narrative: EXAM NARRATIVE: General exam is no apparent distress Cardiovascular regular rate and rhythm without murmur Lungs clear Abdomen is soft positive bowel sounds Extremities no cyanosis clubbing or edema Discharge Data Data Completed and Pending: Completed Studies During Hospitalization Category Date Time Status CT abdomen pelvis w con* [id number] Urge nt Cat Scan 06/20/19 18:22 Completed US abdomen comple te* [id number] Urgent Ultrasound 06/20/19 18:23 Completed Pending at discharge Category Date Time Status Hepatitis C RNA V iral Load Qnt Stat Lab 06/20/19 18:43 Received Labs from last 24 hours 06/22/19 06/22/19 06/22/19 04:50 04:50 04:50 WBC 5.1 RBC 4.23 Hgb 12.8 Hct 37.7 L MCV 89.1 MCH 30.3 MCHC 34.0 RDW 16.2 H Plt Count 187 MPV 12.1 H Neut % (Auto) 40.0 Lymph % (Auto) 43.8 [place] % (Auto) 13.4 Eos % (Auto) 1.4 Baso % (Auto) 1.0 Neut # (Auto) 2.1 Lymph # (Auto) 2.3 [place] # (Auto) 0.7 Eos # (Auto) 0.1 Baso # (Auto) 0.1 Nucleated RBC % (a uto) 0 Nucleated RBCs # 0.0 PT 14.30 H INR 1.08 Sodium 136 Potassium 4.3 Chloride 102 Carbon Dioxide 27 Anion Gap 11.3 BUN 6 Creatinine 0.7 GFR Calculation 129.1 Glucose 95 Calculated Osmolal ity 278 L Calcium 8.5 Total Bilirubin 4.3 H AST 121 H ALT 378 H Alkaline Phosphata se 225 H Total Protein 6.7 Albumin 2.9 L Globulin 3.8 Vitals: Last Vital Signs Temp 98.7 F 06/22/19 11:32 Pulse 67 06/22/19 11:32 Resp 18 06/22/19 11:32 BP 100/66 06/22/19 11:32 Pulse Ox 96 06/22/19 11:32 Discharge Plan Discharge Patient Disposition: Home, Self-Care Condition: Stable Prescriptions: New metoprolol tartrate 25 mg Tablet 25 mg PO DAILY Qty: 30 RF: 0 thiamine mononitrate (vit B1) [Vitamin B-1 (mononitrate)] 100 mg Tablet 100 mg PO DAILY Qty: 30 RF: 0 Continued clonazepam 1 mg tablet 1 mg PO DAILY PRN (Reason: Anxiety) 30 Days Qty: 30 RF: 1 hydroxyzine HCl 50 mg tablet 50 mg PO QID 30 Days Qty: 120 RF: 1 trazodone 100 mg tablet 100 mg PO BEDTIME PRN (Reason: Sleep) 30 Days Qty: 30 RF: 1 fluoxetine 20 mg capsule 20 mg PO DAILY 30 Days Qty: 30 RF: 1 Discontinued metoprolol tartrate 25 mg tablet 25 mg PO TID Qty: 90 RF: 0 ondansetron 4 mg Tablet,Disintegrating 4 mg PO Q8H PRN (Reason: Nausea) RF: 0 Discharge Orders: Discharge Order (Routine); Ordered 06/22/19 Ordered By: Kodi Escalera Referrals: Carson Mendez MD [Primary Care Provider] - 4-7 days (Follow-up of hepatitis A, consideration of treatment for hepatitis C) Discharge Diet: Regular Discharge Activity: Resume usual activity Activity Restrictions/Additional Instructions: No alcohol. Follow-up with behavioral health care Follow-up with primary care provider Dr. 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
[2019-06-22 15:58] LABS: HEP C RNA Viral Load Quant 1.41 Log IU/mL (NOT DETECTED); HEP C RNA Viral Load Quant 26 IU/mL (NOT DETECTED)
--- NOTE | 2019-06-22 16:11 | PC.NURSE ---
Discharge Summary Patient discharge home with self care. patient iv discontinued and vitals within normal limits. prescription brought to patient by the pharmacy. patient was taken home by significant other. patient was alert and oriented on discharge.
== END 2019-06-22 16:00 | disposition home or self-care (01) | DRG 897 ==
LOC: ER 18:15 → MEDSURG 22:06
PROVIDERS: Emergency Medicine; Admitting Provider Internal Medicine; Emergency Provider Emergency Medicine; Family Provider Internal Medicine; PCP Internal Medicine; Visit Provider Internal Medicine
DX: F10.10 Alcohol abuse, uncomplicated (principal); B15.9 Hepatitis A without hepatic coma; R17 Unspecified jaundice; B19.20 Unspecified viral hepatitis C without hepatic coma; L21.9 Seborrheic dermatitis, unspecified; F17.200 Nicotine dependence, unspecified, uncomplicated; I10 Essential (primary) hypertension; F32.9 Major depressive disorder, single episode, unspecified; F41.9 Anxiety disorder, unspecified; Z79.899 Other long term (current) drug therapy; Z79.891 Long term (current) use of opiate analgesic
CPT/HCPCS: 12345; 36415; 74177; 76700; 80053; 80074; 80307; 81001; 82009; 82140; 82248; 83605; 83690; 83735; 85025; 85610; 85730; 87522; 87806; 96372; 96375; 99282; J1650; J2270; J7030; Q9967

== ENCOUNTER → 2019-06-29 14:50 | Outpatient (BNVA) | payer SELFPAY | PROVIDERS: Family Provider Internal Medicine; PCP Internal Medicine; Visit Provider Internal Medicine | DX: B19.20 Unspecified viral hepatitis C without hepatic coma (principal); K04.7 Periapical abscess without sinus; B15.9 Hepatitis A without hepatic coma | CPT/HCPCS: 80053; 85025 ==

== ENCOUNTER → 2019-10-05 15:03 | Outpatient (BNVA) | payer SELFPAY | PROVIDERS: Family Provider Internal Medicine; PCP Internal Medicine; Visit Provider Internal Medicine | DX: B17.10 Acute hepatitis C without hepatic coma (principal); F17.210 Nicotine dependence, cigarettes, uncomplicated; F10.21 Alcohol dependence, in remission | CPT/HCPCS: 80053; 87522 ==